=== PATIENT | female | born 1975 | race Caucasian/White ===

== ENCOUNTER 2021-05-11 02:52 | Emergency (ER) | payer OTHER ==
[2021-05-11 02:56] VITALS: BP 155/95; PULSE 90; TEMP 98.8; BMI 26.4
== END 2021-05-11 03:33 | disposition home or self-care (01) ==
LOC: FER 02:52
DX: S20.221A Contusion of right back wall of thorax, initial encounter (principal); S20.222A Contusion of left back wall of thorax, initial encounter; Y04.8XXA Assault by other bodily force, initial encounter
CPT/HCPCS: 99282-25